=== PATIENT | female | born 1970 | race African-American/Black ===

== ENCOUNTER 2024-03-29 11:41 | Emergency (ER) | payer MEDICAID, SELFPAY ==
[2024-03-29 11:44] VITALS: BP 134/106; PULSE 77; RESP 15; TEMP 35.9; O2SAT 96; BMI 38.7
--- NOTE | 2024-03-29 11:53 | ED.VIS.BACK ---
HPI History of Present Illness Chief Complaint: Back PFSH PFS Home Medications ?Medication ?Instructions ?Recorded ?Last Taken ?Type prednisone 20 mg tablet 20 mg PO DAILY #5 tabs 03/29/24 Unknown Rx Allergy/AdvReac Type Severity Reaction Status Date / Time acetaminophen (From Tylenol) Allergy Mild Hives Verified 03/29/24 11:44 ibuprofen Allergy Mild Hives Verified 03/29/24 11:44 Social History Smoking Status: Never smoker EXAM Physical Exam Const Vital Signs: 03/29/24 11:44 03/29/24 13:18 Temperature 96.7 F L 96.7 F L Temperature Source Temporal Pulse Rate 77 77 Respiratory Rate 15 17 Blood Pressure 134/106 H 134/106 H Blood Pressure Mean 115 115 Pulse Ox 96 97 Oxygen Delivery Method Room Air MDM MDM MDM Narrative Medical decision making narrative: HISTORY OF PRESENT ILLNESS: 53-year-old female presents with back pain. Notes several weeks of right lower back pain. States she has been doing lots of heavy lifting at work. Notes pain radiates down right leg. Notes it does wrap around her side. Denies urinary complaint such as frequency, urgency or pain with urination. Denies hematuria. Patient denies any saddle anesthesia, urinary tension, bowel or bladder incontinence, lower extremity weakness, fever or IV drug use, no recent spinal manipulation or surgery, no recent urinary catheterization. REVIEW OF SYSTEMS: All other systems reviewed and are negative except as noted in the history of present illness. At least 10 review of systems reviewed and are negative except as noted in history of present illness. PHYSICAL EXAM: Nursing triage notes reviewed, Vital signs reviewed Constitutional: please see mdm HENT: MMM Eyes: Pupils equal round and reactive to light, Extraocular muscles intact Neck: No stridor, no JVD, full neck ROM Lungs: Clear to auscultation, No wheezing or rales. No increased work of breathing, no conversational dyspnea, no accessory muscle use, no nasal flaring. No respiratory distress noted Heart: Regular rate and rhythm, No murmurs, No rubs and No gallops, 2+ distal pulses (radial, femoral, posterior tibial) in all extremities Abdomen: Soft, there is no tenderness, rigidity, rebound or guarding, no obvious peritoneal signs, no palpable pulsatile abdominal masses, no auscultated abdominal bruit : No CVAT Extremities: No edema Back: No midline step-offs or deformities Neuro: Intact sensation L1-S1 dermatomal distributions. Intact 5/5 strength in hip flexion (T12-L3). Knee extension (L2-L4). Ankle dorsiflexion (L4-L5). Ankle plantar flexion (S1). Great toe extension (L5). 2+ patellar and Achilles DTRs. Skin: No rash or lesions noted MEDICAL DECISION MAKING: Chief Complaint: Back pain External records reviewed: No recent imaging of the back noted Factors affecting care: None reported Social determinants of health: No IV drug use History obtained from others: none Consults: none [facility] Narrative: The patient was initially hemodynamically stable, afebrile and nontoxic-appearing. Initial exam without focal lower extremity neurologic deficits. I considered the following differential diagnosis: Musculoskeletal back pain, space-occupying lesion of the spinal (epidural abscess, epidural hematoma), cauda equina, conus medullaris, fracture dislocation, AAA, nephrolithiasis, pyelonephritis, aortic dissection The patient presented complaining of back pain. There was no history of recent fall or trauma. There was no evidence to support genitourinary etiology. There is also no evidence to suggest vascular pathology such as AAA dissection. No fevers or other evidence to suspect infectious processes, abscess, osteomyelitis etc. The patient?s neurological exam is normal with normal motor and sensory. There is no saddle paresthesias reported and no bowel or bladder incontinence or retention. I suspect the pain is mechanical in nature. I treated the patient with 1 dose of oral narcotics here, prednisone, lidocaine patches. Clinical suspicion, plan of care and management was discussed with the patient. The patient was instructed to follow up with their health care provider. The patient was also instructed to return if the pain worsened, changed, or developed weakness or bowel or bladder trouble. The patient agreed with plan. I completed a structured, evidence-based clinical evaluation to screen for acute non-traumatic spinal emergencies. The patient has a normal detailed neurologic exam and red flag historical factors were negative. The evidence indicates that the patient is very low risk for an acute spinal emergency and this is consistent with my clinical intuition. The risk of further workup is higher than the likelihood of the patient having a spinal epidural abscess or other dangerous emergency spinal condition. It is, therefore, in the patient?s best interest not to do additional emergent testing at this time. Shared Decision-Making I have discussed with the patient my clinical impression and the result of an evidence-based clinical evaluation to screen for spinal epidural abscess and other spinal emergencies, as well as the risk of further testing and hospitalization. The evidence shows that the risk for an acute spinal emergency is less than 1%. Although the risk of an acute spinal emergency has not been completely eliminated, the risks of further testing likely exceed any potential benefit, and the patient agrees with not pursuing further emergent evaluation for causes of back pain at this time. The patient and/or family, caregivers express understanding. The patient and/or family, caregivers agrees with the plan. Total critical care time today provided was at least 0 minutes. This excludes separately billable procedures. Critical care time (if documented) is secondary to the patient having high probability of clinically significant/life threatening deterioration in the patient's condition which required my urgent intervention. Impression: 1. Acute back pain 2. Sciatica Ganesh Jason Dewitt DO Discharge Plan Triage Chief Complaint: Back ED Provider: Ganesh Dewitt Dx/Rx/DC Orders Instructions: ED Back Pain (Acute or Chronic), ED Sciatica Prescriptions: New prednisone 20 mg tablet 20 mg PO DAILY Qty: 5 0RF Primary Care Provider: Amaris Louie Referrals: Amaris Louie ASSISTANT LABORATORY DIRECTOR-C [Primary Care Provider] - Activity Restrictions/Additional Instructions: Thank you for trusting us with your care today! Your clinical presentation is consistent with sciatica. Please take Tylenol (2 pills, 650 mg), ibuprofen (2 pills, 400 mg) every 6 hours as needed for pain and fever control. Please take prednisone as prescribed. Please return to the emergency department if your symptoms change or worsen. Specifically develop bowel or bladder incontinence, urinary retention, decreased sensation around your private area, loss of movement or sensation in your legs. Please follow with your primary care physician for further outpatient evaluation and management. Print Language: Ukrainian Disposition Disposition: Home, Self Care Discharge Date/Time: 03/29/24 13:18
[2024-03-29] MEDS: oxyCODONE 5 MG Tablet PO (12:38)
[2024-03-29] MEDS: Lidocaine 5% Patch 1 PATCH TOPICAL (12:38)
[2024-03-29] MEDS: predniSONE 20 MG Tablet PO (12:38)
[2024-03-29 13:18] VITALS: BP 134/106; PULSE 77; RESP 17; TEMP 35.9; O2SAT 97
== END 2024-03-29 13:18 | disposition home or self-care (01) ==
PROVIDERS: Emergency Provider Emergency Medicine; PCP Nurse Practitioner Family; Visit Provider Emergency Medicine
DX: M54.31 Sciatica, right side (principal); X50.0XXA Overexertion from strenuous movement or load, initial encounter; Y93.89 Activity, other specified; Y92.89 Other specified places as the place of occurrence of the external cause
CPT/HCPCS: 99282

== ENCOUNTER 2025-03-16 09:37 | Inpatient (IN) | payer SELFPAY ==
[2025-03-16] VITALS (14 sets, daily range): BP systolic 112–150; BP diastolic 65–80; PULSE 85–112; RESP 14–20; TEMP 36–37.3; O2SAT 92–99; BMI 41.9
--- NOTE | 2025-03-16 09:47 | CT_ITS ---
PROCEDURE: ABDOMEN/PELVIS W IV CONT ONLY 03/16/2025 REASON FOR EXAM: ABDOMINAL PAIN TECHNIQUE: Procedure Code: [id number] Modality: CT Procedure: ABDOMEN/PELVIS W IV CONT ONLY Coronal and Sagittal reconstruction series were provided. CONTRAST: Isovue 370 VOLUME: 75 mL One or more dose reduction techniques were used (e.g., Automated exposure control, adjustment of the mA and/or kV according to patient size, use of iterative reconstruction technique. RADIATION DOSE SUMMARY: CTDlvol: 22.55 mGy DLP: 1170.51 mGycm COMPARISON: None. FINDINGS: Lung bases: Clear. Liver: Unremarkable. Gallbladder: Distended but otherwise unremarkable. No biliary dilation. Spleen: Unremarkable. Pancreas: Unremarkable. Adrenals: Unremarkable. Kidneys: Unremarkable. No hydronephrosis. No nephrolithiasis. Bladder: Unremarkable. Reproductive Organs: Unremarkable. Bowel: No bowel wall thickening. No bowel obstruction. Appendix: The appendix is dilated measures 1.5 cm in diameter with wall enhancement. Previously fat stranding. Multiple appendicoliths. Nearby collection contains air and fluid measures 2 x 6 x 4 cm. Lymph nodes: No lymphadenopathy. Vasculature: No aneurysm. Peritoneum / Retroperitoneum: No remote free air or free fluid. Bones: No acute bony abnormalities. CT/Abdomen/Pelvis W IV Cont ONLY IMPRESSION: Perforated acute appendicitis with up to 4 cm abscess as detailed. Findings were discussed with Dr. Garrison on 03/16/2025 10:32 a.m.. Reading Location: [facility]
--- NOTE | 2025-03-16 09:49 | ED.VIS.GI ---
HPI HPI - GI History of Present Illness Chief Complaint: Abd Pain Detail of Chief Complaint: Abdominal pain Informant: patient Narrative Narrative: Patient presents with abdominal pain that started 4 days ago. She did develop vomiting. Vomiting is since stopped and she did not throw up yesterday or today. Continues with the abdominal pain. Today she had 2 bouts of watery stool. She spoke with her son whom she saw around [facility] and he had similar type illness for over a week. Patient denies fever. She has had no prior abdominal surgeries other than hysterectomy. She rates her pain a 10 out of 10 and is generalized and diffuse and continuous. She has had decreased p.o. intake. She denies urinary symptoms such as dysuria urgency or frequency. PFSH PFS Home Medications ?Medication ?Instructions ?Recorded ?Last Taken ?Type prednisone 20 mg tablet 20 mg PO DAILY #5 tabs 03/29/24 Unknown Rx Allergy/AdvReac Type Severity Reaction Status Date / Time acetaminophen (From Tylenol) Allergy Mild Hives Verified 03/16/25 09:39 ibuprofen Allergy Mild Hives Verified 03/16/25 09:39 Surgical History (Updated 03/16/25 @ 09:47 by Pranav Collier) H/O: hysterectomy Social History Smoking Status: Never smoker ROS ROS ED Review of Systems ROS Unobtainable: other Constitutional Constitutional ED: Reports lethargy; Denies chills, fever(s), sweats or weight loss Eyes Eyes: Denies blurry vision, change in vision or diplopia ENT ENT ED: Denies rhinorrhea or sore throat Cardiovascular Cardiovascular: Denies chest pain, orthopnea or racing heartbeat Respiratory/Chest Respiratory/Chest: Denies cough, dyspnea, dyspnea on exertion, orthopnea or sputum Gastrointestinal Gastrointestinal: Reports abdominal pain, diarrhea, nausea and vomiting Genitourinary Genitourinary ED: Denies dysuria, hematuria or urinary frequency Musculoskeletal Musculoskeletal: Denies arthralgias, back pain, myalgias or neck pain Integumentary Denies abscess, Abrasions or rash Neurologic Neurologic: Denies headache(s) or weakness Psychiatric Psychiatric: Denies anxiety, depression or suicidal thoughts Endocrine Endocrinology: Denies polydipsia, polyphagia or polyuria Hematologic/Lymphatic Hematologic/Lymphatic: Denies easy bleeding, easy bruising or lymphadenopathy Allergic/Immunologic Allergic/Immunologic ED: Denies mouth swelling, tongue swelling or urticaria EXAM Physical Exam Const Vital Signs: 03/16/25 09:38 Temperature 96.8 F L Temperature Source Temporal Pulse Rate 112 H Respiratory Rate 20 H Blood Pressure 113/80 Blood Pressure Mean 91 Pulse Ox 99 Oxygen Delivery Method Room Air Positive well nourished and well developed General Appearance ED: well developed and NAD HEENT Reports TM's clear and moist mucous membranes normocephalic and atraumatic; Negative for trauma or tenderness Tympanic Membrane ED: Yes TM's clear Eyes PERRL and EOMs intact bilaterally General Eye ED: Negative for pale conjunctiva or scleral icterus Neck no lymphadenopathy, supple and no JVD General: Negative for tenderness Chest Wall inspection of chest normal and palpation of chest normal Chest: Negative for tenderness Resp normal respiratory effort and clear to auscultation bilaterally Effort and Inspection: Negative for respiratory distress or pain with movement Auscultation: Negative for rhonchi, wheezes or diminished lung sounds Cardio regular rate, regular rhythm, S1 normal heart sound, S2 normal heart sound and no murmurs Peripheral Pulses: pulses 2+ throughout GI normal to inspection, nondistended, normoactive bowel sounds, soft to palpation, non-distended and no masses GI Narrative: Mild diffuse tenderness. There is no rebound, rigidity, or peritoneal signs Back/Spine no CVA tenderness and no thoracic nor lumbar tenderness Extremity normal to inspection General Extremety ED: Negative for edema General Extremity: Negative for edema Neuro oriented x3, CN's II-XII intact bilaterally, no sensory deficits noted and gait normal Sensorium / Orientation: awake, alert, oriented to person, oriented to place and oriented to time Motor Exam: strength 5/5 throughout and strength abnormal Psych mental status grossly normal Skin no rashes or lesions noted and no wounds MDM MDM MDM Narrative Medical decision making narrative: Patient presents with vomiting and abdominal pain and now diarrhea started. Clinically looks well. IV line established. CBC with differential obtained showed an elevated white count of 15.7 with hemoglobin 12.5 and platelet count of 185. Chemistries showed a depressed potassium at 3.0 with chloride 101. BUN 17 and creat 1.64. LFTs unremarkable. Lipase was normal at 20. I ordered a CT scan of the abdomen pelvis which was read by radiology as acute perforated appendicitis with abscess. Discussed case with general surgeon on-call Dr. Valencia who will see patient in the emergency department. I did start patient on Zosyn IV. Urinalysis also ordered and pending. Lab Data Attestation: I reviewed the patient's lab results. Labs: Laboratory Results - last 24 hr 03/16/25 09:57 WBC 15.7 H RBC 3.85 L Hgb 12.5 Hct 35.9 L MCV 93.2 MCH 32.5 H MCHC 34.8 RDW Std Deviation 42.6 RDW Coeff of Adria 12.4 Plt Count 185 MPV 9.8 Immature Gran % (Auto) 0.500 Neut % (Auto) 86.3 H Lymph % (Auto) 6.0 L Ralls % (Auto) 6.1 Eos % (Auto) 0.8 Baso % (Auto) 0.3 Absolute Neuts (auto) 13.6 H Absolute Lymphs (auto) 0.94 Nucleated RBC % 0 Sodium 137 Potassium 3.0 L Chloride 101 Carbon Dioxide 20.8 L Anion Gap 15 BUN 17 Creatinine 1.64 H Estim Creat Clear Calc 51.20 Est GFR (MDRD) Non-Af 37 L BUN/Creatinine Ratio 10.6 Glucose 134 H Lactic Acid 1.2 Calcium 9.5 Total Bilirubin 1.05 AST 21 ALT 18 Alkaline Phosphatase 98 Total Protein 7.2 Albumin 3.6 Globulin 3.6 Albumin/Globulin Ratio 1.0 Lipase 20 Radiography Diagnostic Testing: Clinical Impression(s) from Imaging Studies Abdomen/Pelvis CT 03/16/25 09:47 IMPRESSION: Perforated acute appendicitis with up to 4 cm abscess as detailed. Findings were discussed with Dr. Garrison on 03/16/2025 10:32 a.m.. Reading Location: [id number] Discharge Plan Dx/Rx/DC Orders Clinical Impression: Acute perforated appendicitis Disposition Disposition: [facility]
[2025-03-16] MEDS: 0.9% Normal Saline (1000mL) 1,000 ML 999 ML IV (09:58)
[2025-03-16 10:15] LABS: Hematocrit 35.9 % (37-47); Hemoglobin 12.5 g/dL (12.0-15.0); Immature Granulocytes Count 0.080 X10^3/uL (0.0-0.0); Mean Corp Hgb Conc 34.8 g/dL (32-36); Mean Corpuscular Volume 93.2 fL (81-99); Mean Platelet Vol. 9.8 fl (6.2-12.0); NRBC Flagged by Analyzer 0 % (0-5); Platelet Count 185 K/mm3 (150-450); RBC Distribution Width CV 12.4 % (11.6-14.6); RBC Distribution Width SD 42.6 fl (35.1-43.9); Red Blood Count 3.85 M/mm3 (4.2-5.4); White Blood Count 15.7 K/mm3 (4.4-11.0)
[2025-03-16 10:42] LABS: AST(SGOT) 21 U/L (<=31); Alanine Aminotransfer ALT/SGPT 18 U/L (<=34); Albumin, Serum 3.6 g/dL (3.5-5.0); Alkaline Phosphatase 98 U/L (35-104); Anion Gap 15 (5-15); BUN 17 mg/dL (4-19); BUN/Creat Ratio 10.6 RATIO (10-20); Calcium,Total 9.5 mg/dL (7.6-11.0); Carbon Dioxide 20.8 mmol/L (21.0-32.0); Chloride 101 mmol/L (98-108); Estimated Creatinine Clearance 51.20 ml/min (50-250); Globulin 3.6 g/dL (2.2-4.2); Glucose 134 mg/dL (70-99); Lipase 20 U/L (13-75); Potassium 3.0 mmol/L (3.3-5.1)
--- NOTE | 2025-03-16 10:53 | PCM.HP.STD ---
HPI - General HPI Narrative FANTASMA HUANG, is a 54 F who presents with abdominal pain. Patient reports that this started on Friday. She did have nausea and vomiting. She also says that she had chills but no fever. She defines the pain is in the right lower quadrant without any radiation. PFSH Home Medications ?Medication ?Instructions ?Recorded ?Last Taken ?Type prednisone 20 mg tablet 20 mg PO DAILY #5 tabs 03/29/24 Unknown Rx Allergy/AdvReac Type Severity Reaction Status Date / Time acetaminophen (From Tylenol) Allergy Mild Hives Verified 03/16/25 09:39 ibuprofen Allergy Mild Hives Verified 03/16/25 09:39 Surgical History (Updated 03/16/25 @ 09:47 by Pranav Collier) H/O: hysterectomy Social History Smoking Status: Never smoker Vital Signs Vital Signs Vital Signs: 03/16/25 09:38 Temperature 96.8 F L Temperature Source Temporal Pulse Rate 112 H Respiratory Rate 20 H Blood Pressure 113/80 Blood Pressure Mean 91 Pulse Ox 99 Oxygen Delivery Method Room Air Weight Weight: 259 lb 11.272 oz Body Mass Index (BMI) 41.9 Physical Exam Const oriented x3 and no apparent distress Resp normal respiratory effort GI soft to palpation Palpation: tender Positive for RLQ Extremity normal to inspection Results Lab / Micro Data 03/16/25 09:57 03/16/25 09:57 Labs: Laboratory Results - last 24 hr 03/16/25 09:57: WBC 15.7 H, RBC 3.85 L, Hgb 12.5, Hct 35.9 L, MCV 93.2, MCH 32.5 H, MCHC 34.8, RDW Std Deviation 42.6, RDW Coeff of Adria 12.4, Plt Count 185, MPV 9.8, Immature Gran % (Auto) 0.500, Neut % (Auto) 86.3 H, Lymph % (Auto) 6.0 L, [place] % (Auto) 6.1, Eos % (Auto) 0.8, Baso % (Auto) 0.3, Absolute Neuts (auto) 13.6 H, Absolute Lymphs (auto) 0.94, Nucleated RBC % 0, Sodium 137, Potassium 3.0 L, Chloride 101, Carbon Dioxide 20.8 L, Anion Gap 15, BUN 17, Creatinine 1.64 H, Estim Creat Clear Calc 51.20, Est GFR (MDRD) Non-Af 37 L, BUN/Creatinine Ratio 10.6, Glucose 134 H, Lactic Acid 1.2, Calcium 9.5, Total Bilirubin 1.05, AST 21, ALT 18, Alkaline Phosphatase 98, Total Protein 7.2, Albumin 3.6, Globulin 3.6, Albumin/Globulin Ratio 1.0, Lipase 20 Imaging Radiology Impression Abdomen/Pelvis CT 03/16/25 09:47 IMPRESSION: Perforated acute appendicitis with up to 4 cm abscess as detailed. Findings were discussed with Dr. Garrison on 03/16/2025 10:32 a.m.. Reading Location: [facility] OF [facility] Assessment & Plan Assessment/Plan (1) Acute perforated appendicitis: PLAN: I reviewed the patient's imaging and the patient's imaging show acute appendicitis with perforation and a small abscess. I discussed laparoscopic appendectomy with the patient in detail and likely leaving a drain. I discussed the possibility of ileocecectomy. I discussed laparoscopic appendectomy in detail as well as the risks including but not limited to bleeding, infection, injury other organ such as the bowel, bladder, ureter. Patient understands all the risks and is willing to proceed. She was given a dose of antibiotics in the emergency room and will be taken down for surgery. Fantasma Teran MD Pager: [facility] [address] [place] [address], [address] [place] [address] Office:
[2025-03-16] MEDS: Piperacil/Tazobactam 4.5 GM in 0.9% Normal Saline (100mL MB+) 100 ML IV (10:55)
--- NOTE | 2025-03-16 11:22 | PCM.PRE.AN2 ---
ASA Classification* ASA Classification ASA Classification: 3 and E Assessment & Plan Anesthesia* Anesthesia Assessment Anesthesia Assessment: Discussed sedation and/or anesthesia options, risks, benefits, and alternatives with patient/parents/legal guardian/POA. Questions invited. The patient/parents/legal guardian/POA seems to understand and agrees to proceed with anesthesia plan. Reviewed the physical assessment, medical history, allergy history and patient home medications list prior to surgery/procedure/anesthetic and documented any changes. Performed airway and anesthesia risk assessments. Anesthesia Type Anesthesia Type: General Anesthesia Focused Assessment* Temperature: 96.8 F Pulse Rate: 112 Blood Pressure: 113/80 Respiratory Rate: 20 Pulse Ox: 99 Airway Assessment Mouth opens: >3 cm Mallampati Score: II Labs Anesthesia Preop lab: CBC WBC, (4.4-11.0) 15.7 K/mm3 H Today, 09:57 RBC, (4.2-5.4) 3.85 M/mm3 L Today, 09:57 Hgb, (12.0-15.0) 12.5 g/dL Today, 09:57 Hct, (37-47) 35.9 % L Today, 09:57 Plt Count, (150-450) 185 K/mm3 Today, 09:57 CHEMISTRY Potassium, (3.3-5.1) 3.0 mmol/L L Today, 09:57 Sodium, (133-145) 137 mmol/L Today, 09:57 BUN, (4-19) 17 mg/dL Today, 09:57 Creatinine, (0.70-1.20) 1.64 mg/dL H Today, 09:57 Glucose, (70-99) 134 mg/dL H Today, 09:57 COAG Pre-Assessment Diagnosis/Proposed Procedure Planned Operative Procedure(s): Laparoscopic appendectomy Anesthesia History 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 When Was Last Pacemaker Check QUESTION #4 FULL TEXT: You/Your Family Experience fever (hyperthermia) with Anesthesia Last Oral Intake Last Oral intake: Last Oral Intake NPO since Meds taken in AM with sips of water? Meds patient instructed to take am of surgery PONV PONV - ultimate hoops scoreboard operator: PONV - ultimate hoops scoreboard operator Female HX of Motion Sickness HX of N/V After Surgery Non-Smoker Duration of Surgery greater than 60 minutes Number of Risk Factors PONV Score Height & Weight Height & Weight: Anesthesia: Height & Weight Height 5 ft 6 in 03/16/25 09:38 Weight: 117.8 kg 03/16/25 09:47 Body Mass Index (BMI) 41.9 03/16/25 09:47 Respiratory Assessment Respiratory Assessment - ultimate hoops scoreboard operator: Respiratory Tract Infection Hx - ultimate hoops scoreboard operator Hx Respiratory Tract Infection STOP Sleep Apnea STOP Sleep Apnea - ultimate hoops scoreboard operator: STOP Sleep Apnea - ultimate hoops scoreboard operator Hx Hypertension Hx Sleep Apnea CPAP BIPAP Do you snore loudly (louder than talking or can be heard Do you often feel tired/ fatigued/ sleepy during daytime? Has anyone observed you stop breathing during sleep? STOP Results QUESTION #5 FULL TEXT : Do you snore loudly (louder than talking or can be heard through closed doors)? 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 Specify any problems Hx of Preganancy in last 3 Months Nurse Filling Out Transfusion & Questions: Date: Time: Patient unable to answer at this time (ie. confused, unrespo /Reproduction History /Reproductive History - ultimate hoops scoreboard operator: /Reproductive Hx- ultimate hoops scoreboard operator Hx Now Gestational Age (in weeks): EDC: Hx Hx Para Hx Section SAB Does the father of the baby or his family experience fever w Father of the baby Malignant Hypertension history comment Active Medications Active Medications: Current Medications Generic Name Dose Route Start Last Admin Trade Name Freq PRN Reason Stop Dose Admin Potassium Chloride 10 meq in 100 mls @ 100 mls/hr 03/16/25 11:30 IV BOLUS 03/16/25 13:29 Q1H MARCELO PFSH Home Medications ?Medication ?Instructions ?Recorded ?Last Taken ?Type prednisone 20 mg tablet 20 mg PO DAILY #5 tabs 03/29/24 Unknown Rx Allergy/AdvReac Type Severity Reaction Status Date / Time acetaminophen (From Tylenol) Allergy Mild Hives Verified 03/16/25 09:39 ibuprofen Allergy Mild Hives Verified 03/16/25 09:39 Surgical History H/O: hysterectomy Social History Smoking Status: Never smoker Review of Systems (Anesthesia) ROS Narrative System reviewed and no additional complaints, except as documented.
[2025-03-16] MEDS: Potassium Chloride 10mEq/100mL 10 MEQ/100 ML IV.SOLN. 100 MEQ IV BOLUS ×2 (11:52→13:01)
[2025-03-16] MEDS: 0.9% Normal Saline (1000mL) 1,000 ML 15 ML IV (11:58)
[2025-03-16] MEDS: Bupiv/Epi 0.25% 30 ML Vial (13:18)
[2025-03-16] MEDS: Lidocaine 1% (5 ml sdv) 5 ML Vial 10 ML IV (14:37)
--- NOTE | 2025-03-16 15:05 | APP_PTH ---
PATIENT: FANTASMA HUANG LOC: MS3 U#:[id number] AGE/SX: 54/F ROOM: MS319 RE03/16/[address]: Dr. Fantasma Teran MD : 1970 BED: 1 DIS: 03/19/2025 SPEC #: [id number] RECD: 03/16/25 16:10 STATUS: NOEMI LUNA #: [id number] FATIMAH: 03/16/25 15:[address]: Fantasma Teran DEPT: SURGICAL PATHOLOGY RECD BY: Navneet White ENTERED: 03/17/25 09:42 SP TYPE: APPENDIX OTHR DR: DAQUAN Carranza Tissues: A - Appendix, NOS Procedures: Surgery Specimen Level III HEADER OPERATION: Laparoscopic appendectomy PRE-OP DIAGNOSIS: Acute perforated appendicitis TISSUE SUBMITTED: A- Appendix MICROSCOPIC DIAGNOSIS A. Cecal appendix, appendectomy: - Gangrenous appendicitis with perforation MICROSCOPIC DESCRIPTION Slides are reviewed. GROSS DESCRIPTION A. Received in formalin labeled with the patient's name and date of . Designated as appendix is a pink-red and granular cecal appendix and 2 pieces, collectively measuring 9.4 x 0.7 cm. There is patchy exudate on the serosal surface and attached, shaggy and congested mesoappendix. The margin is inked black and shaved. Sectioning reveals green-guillen diffusely necrotic mucosa with a fibrous distal tip and a 0.3 cm area of fibrosis spanning from the mucosa to the underlying mesoappendix (suspicious for healed perforation) located 0.8 cm from the distal tip. It Systems Manager sections are submitted in 2 cassettes as follows: A1: Margin, cross-sectionsA2: Distal tip, trisected WI 03/17/2025 CPT:26706
[2025-03-16] MEDS: fentaNYL 100 MCG/2 ML Ampul 200 MCG IV (15:16)
--- NOTE | 2025-03-16 15:33 | PCM.OPRPT ---
Operative Report (Standard) Operative Information Date of Procedure: 03/16/25 Pre-Operative Diagnosis: Perforated appendicitis Post-Operative Diagnosis: Perforated appendicitis Surgery/Procedure Performed: Laparoscopic appendectomy security systems administrator: Yes Life Underwriter: Shannan Gudino Tasks completed by list of first job ideas: Opening & closing and Retracting Type of Anesthesia: General/Regional RN Documented Start/Stop Times: Operation Date: 03/16/25 15:05 Case Time Into Pre-Op 03/16/25 11:09 Anesthesia Start 03/16/25 14:30 Into Room 03/16/25 14:30 Out of Pre-Op 03/16/25 14:30 Procedure Start 03/16/25 14:50 Procedure Start Time: 14:50 Procedure Stop Time: 15:40 Select all DRAINS/GRAFTS/IMPLANTS that apply: Drains Drain details: RICKEY to bulb suction Estimated Blood Loss: 20 Specimen collected: Yes Description of specimen(s) removed: Appendix Description of surgery: Patient was brought to the op room and general anesthesia was induced. The abdomen was prepped and draped in usual sterile fashion. A midline incision was made superior to the umbilicus and using Visiport technique the abdomen was entered. The abdomen was insufflated to 15 mmHg. The camera was inserted and the patient was placed in steep Trendelenburg position. Under direct visualization a suprapubic 5 mm port was placed and a left lower quadrant 5 mm port was placed. The midline incision port was upsized to a 12 mm port. The right lower quadrant was explored. The appendix was densely adherent to the other bowel. After dissecting it free there was an abscess cavity that was suctioned. There was feculent material in the abscess. This was all suctioned dry. The appendix was identified and it was perforated in the midsection. The distal appendix was placed into a bag. The proximal appendix was dissected free and the blood vessels were taken down using Enseal. A stapler was placed across the proximal appendix and it was divided from the cecum. It was placed into a separate bag along with a stool that was in the abscess. The staple line was inspected and there was some bleeding so titanium clip silica spray mixer was used to clip over the staple line to stop the bleeding. There was good hemostasis and the cavity was irrigated and suctioned dry. A 15 [place] Islander round drain was placed through the left lower quadrant incision and placed into the abscess cavity. It was sutured to the skin using 4-0 nylon suture. Next the camera was moved to the suprapubic port and the supraumbilical port was desufflated and removed and the bags were removed including the pieces of the appendix. Next the midline fascia was closed with a 0 Vicryl suture using the Mark Peralta needle. Next the abdomen was allowed to desufflate from the abdomen and the port was removed. The incisions were injected with local anesthetic and closed with interrupted 4-0 Monocryl sutures. Steri-Strips and bandages were applied. Drain was placed to bulb suction. Patient was awoken and taken to PACU in stable condition. Surgical Findings: Perforated appendicitis with feculent abscess Complications Complications: No Admit VTE Documentation VTE Mechan Device Prophylaxis: SCD's
--- NOTE | 2025-03-16 15:48 | PCM.POST.ANE ---
Anesthesia: Postop Eval I Current Vital Signs Temperature: 99.2 F Pulse Rate: 104 Blood Pressure: 150/74 Respiratory Rate: 16 Pulse Ox: 95 Oxygen Delivery Method: Room Air Assessment Airway patent: Yes Spontaneous unlabored respirations: Yes Mental status: Awake and Calm nausea: No Vomiting: No Anesthesia Complication: No Fluid Hydration Crystalloid volume administer (ml): 1,200 Total IV fluid infused: 1,200 Progress Note Anesthesia document: Postop Eval 1 completed: Yes
[2025-03-16] MEDS: 0.9% Saline Lock 10 ML Syringe IV (19:20)
[2025-03-16] MEDS: 0.9% Normal Saline (1000mL) 1,000 ML 125 ML IV (19:25)
[2025-03-16] MEDS: Piperacil/Tazobactam 3.375 GM in 0.9% Normal Saline (50mL MB+) 50 ML IV (21:39)
[2025-03-17 04:33] VITALS: BP 114/90; PULSE 63; RESP 18; TEMP 36.4; O2SAT 100
[2025-03-17] MEDS: Piperacil/Tazobactam 3.375 GM in 0.9% Normal Saline (50mL MB+) 50 ML IV ×3 (04:37→21:15)
[2025-03-17] MEDS: 0.9% Normal Saline (1000mL) 1,000 ML 125 ML IV ×3 (04:37→21:08)
[2025-03-17 06:35] LABS: Hematocrit 31.6 % (37-47); Hemoglobin 10.6 g/dL (12.0-15.0); Immature Granulocytes Count 0.080 X10^3/uL (0.0-0.0); Mean Corp Hgb Conc 33.5 g/dL (32-36); Mean Corpuscular Volume 94.6 fL (81-99); Mean Platelet Vol. 10.1 fl (6.2-12.0); NRBC Flagged by Analyzer 0 % (0-5); POSITIVE DIFFERENTIAL YES; POSITIVE MORPHOLOGY YES; Platelet Count 187 K/mm3 (150-450); RBC Distribution Width CV 12.8 % (11.6-14.6); RBC Distribution Width SD 44.6 fl (35.1-43.9); Red Blood Count 3.34 M/mm3 (4.2-5.4); White Blood Count 12.1 K/mm3 (4.4-11.0)
[2025-03-17 07:01] LABS: Differential Indicated SCAN CRITERIA MET
[2025-03-17 07:09] LABS: Anion Gap 11 (5-15); BUN 13 mg/dL (4-19); BUN/Creat Ratio 13.8 RATIO (10-20); Calcium,Total 8.3 mg/dL (7.6-11.0); Carbon Dioxide 20.1 mmol/L (21.0-32.0); Chloride 106 mmol/L (98-108); Estimated Creatinine Clearance 90.28 ml/min (50-250); Glucose 193 mg/dL (70-99); Potassium 3.3 mmol/L (3.3-5.1)
--- NOTE | 2025-03-17 07:57 | PCM.PN.SRG ---
Subjective Subjective Patient is comfortable and in less pain than she was before surgery. She is not passing any gas or having any nausea. Objective Data Objective Data Vital Signs: Vital Signs Temp Pulse Resp BP Pulse Ox O2 Del Method O2 Flow Rate 97.5 F L 63 18 114/90 H 100 Room Air 2 03/17/25 04:33 03/17/25 04:33 03/17/25 04:33 03/17/25 04:33 03/17/25 04:33 03/17/25 04:33 03/16/25 17:32 Oxygen Flow Rate (L/min) 2 Oxygen Delivery Method Room Air Weight: 259 lb 11.272 oz Body Mass Index (BMI) 41.9 Intake & Output: Intake and Output for Last 24 Hours 03/15/25 03/16/25 03/17/25 23:59 23:59 23:59 Intake Total 3600 / 3600 1050 / 1050 Output Total 185 / 185 50 / 50 Balance 3415 / 3415 1000 / 1000 Lab / Micro Data 03/17/25 06:22 03/17/25 06:22 Labs: Laboratory Results - last 24 hr 03/16/25 09:57: WBC 15.7 H, RBC 3.85 L, Hgb 12.5, Hct 35.9 L, MCV 93.2, MCH 32.5 H, MCHC 34.8, RDW Std Deviation 42.6, RDW Coeff of Adria 12.4, Plt Count 185, MPV 9.8, Immature Gran % (Auto) 0.500, Neut % (Auto) 86.3 H, Lymph % (Auto) 6.0 L, [place] % (Auto) 6.1, Eos % (Auto) 0.8, Baso % (Auto) 0.3, Absolute Neuts (auto) 13.6 H, Absolute Lymphs (auto) 0.94, Nucleated RBC % 0, Sodium 137, Potassium 3.0 L, Chloride 101, Carbon Dioxide 20.8 L, Anion Gap 15, BUN 17, Creatinine 1.64 H, Estim Creat Clear Calc 51.20, Est GFR (MDRD) Non-Af 37 L, BUN/Creatinine Ratio 10.6, Glucose 134 H, Lactic Acid 1.2, Calcium 9.5, Total Bilirubin 1.05, AST 21, ALT 18, Alkaline Phosphatase 98, Total Protein 7.2, Albumin 3.6, Globulin 3.6, Albumin/Globulin Ratio 1.0, Lipase 20 03/17/25 06:22: WBC 12.1 H, RBC 3.34 L, Hgb 10.6 L, Hct 31.6 L, MCV 94.6, MCH 31.7, MCHC 33.5, RDW Std Deviation 44.6 H, RDW Coeff of Adria 12.8, Plt Count 187, MPV 10.1, Immature Gran % (Auto) 0.700, Neut % (Auto) 90.9 H, Lymph % (Auto) 4.6 L, [place] % (Auto) 3.7, Eos % (Auto) 0.0, Baso % (Auto) 0.1, Absolute Neuts (auto) 11.0 H, Absolute Lymphs (auto) 0.56 L, Nucleated RBC % 0, Sodium 138, Potassium 3.3, Chloride 106, Carbon Dioxide 20.1 L, Anion Gap 11, BUN 13, Creatinine 0.93, Estim Creat Clear Calc 90.28, Est GFR (MDRD) Non-Af 73, BUN/Creatinine Ratio 13.8, Glucose 193 H, Calcium 8.3 Radiography Diagnostic Testing: Radiology Impression Abdomen/Pelvis CT 03/16/25 09:47 IMPRESSION: Perforated acute appendicitis with up to 4 cm abscess as detailed. Findings were discussed with Dr. Garrison on 03/16/2025 10:32 a.m.. Reading [facility] Physical Exam Const oriented x3 and no apparent distress Resp normal respiratory effort GI soft to palpation Palpation: tender Extremity normal to inspection Assessment & Plan Assessment/Plan (1) Acute perforated appendicitis: PLAN: The patient had perforated appendicitis and is still having purulence in the drain. Continue antibiotics. Continue n.p.o. until she passes gas. Encouraged ambulation and incentive spirometer. Fantasma Teran MD Pager: [facility] [address] [place] [address], [address] [place] [address] Office:
[2025-03-17 09:00] VITALS: BP 104/77; PULSE 64; RESP 18; TEMP 36.8; O2SAT 100
[2025-03-17] MEDS: FLU VACCINE 2025-26(6MOS UP) 45 MCG/0.5 ML SYRINGE IM (09:14)
--- NOTE | 2025-03-17 11:15 | CASEMGMT ---
Dx:acute perforated appendicitis, abd pain LACE:1 6-Clicks:24 Medical record reviewed and patient evaluated for identification of discharge planning needs. Based on this review, at this time criteria are not present to indicate a need for discharge planning. Will remain available to assist with discharge planning needs as identified or requested. Pt has drain, follow for drain care if present upon dc.
[2025-03-17 14:35] VITALS: BP 115/75; PULSE 73; RESP 18; TEMP 36.9; O2SAT 100
--- NOTE | 2025-03-17 15:41 | CASEMGMT ---
Social Work- SW met with pt to discuss self-pay status. SW introduced self and role; pt agreeable to meet. Stefania, [employer], met with pt earlier. Pt is over-income for CHARLINE, but qualifies for HCAP. Pt has been out of work and may qualify for CHARLINE for March, therefore, Stefania will follow up at discharge. Pt reports to SW that she works at [employer] and is concerned about rent next month. SW provided information for [employer], [employer], prescription information, [employer], gas resources. Pt reports no other needs at this time. Pt was working on gathering pay stubs for HCAP. JANIS Sharma
--- NOTE | 2025-03-17 16:19 | POSTOPAN2_ITS ---
Anesthesia Postop Eval I Sum Postop Eval Completion status Anesthesia document: Postop Eval 1 completed: Yes Anesthesia Postop Eval I Summary Anesthesia Postop Eval I Summary: Anesthesia Postop Eval I: Assessment Summary Airway patent Yes 03/16/25 15:48 [email or web address] [email or web address] Spontaneous unlabored Yes 03/16/25 15:48 [email or web address] [email or web address] respirations Mental status Awake,Calm 03/16/25 15:48 [email or web address] [email or web address] nausea No 03/16/25 15:48 [email or web address] [email or web address] Vomiting No 03/16/25 15:48 [email or web address] Anesthesia Postop Eval I: Fluid Summary Crystalloid volume administer 1,200 03/16/25 15:48 [email or web address] (ml) Colloids volume administered ( ml) Blood Product volume administered (ml) Total IV fluid infused 1,200 03/16/25 15:48 [email or web address] Anesthesia Postop Eval I: Summary Notes Anesthesia Complication No 03/16/25 15:48 [email or web address] Anesthesia Complication Comment: Post-operative progress note Anesthesia: Postop Eval II Evaluation Mental status: Awake and Calm Pain Level: 0 nausea: No Vomiting: No Complications Anesthesia Complication: No
--- NOTE | 2025-03-17 16:19 | PCM.POSTANE2 ---
Anesthesia Postop Eval I Sum Postop Eval Completion status Anesthesia document: Postop Eval 1 completed: Yes Anesthesia Postop Eval I Summary Anesthesia Postop Eval I Summary: Anesthesia Postop Eval I: Assessment Summary Airway patent Yes 03/16/25 15:48 BEATING MACHINE [email or web address] Spontaneous unlabored Yes 03/16/25 15:48 BEATING MACHINE OPERATOR.[email or web address] respirations Mental status Awake,Calm 03/16/25 15:48 BEATING MACHINE OPERATOR.[email or web address] nausea No 03/16/25 15:48 BEATING MACHINE OPERATOR.[email or web address] Vomiting No 03/16/25 15:48 BEATING MACHINE [email or web address].[email or web address] Anesthesia Postop Eval I: Fluid Summary Crystalloid volume administer 1,200 03/16/25 15:48 BEATING MACHINE [email or web address].[email or web address] (ml) Colloids volume administered ( ml) Blood Product volume administered (ml) Total IV fluid infused 1,200 03/16/25 15:48 BEATING MACHINE OPERATOR.[email or web address] Anesthesia Postop Eval I: Summary Notes Anesthesia Complication No 03/16/25 15:48 BEATING MACHINE [email or web address].[email or web address] Anesthesia Complication Comment: Post-operative progress note Anesthesia: Postop Eval II Evaluation Mental status: Awake and Calm Pain Level: 0 nausea: No Vomiting: No Complications Anesthesia Complication: No
[2025-03-17] MEDS: 0.9% Saline Lock 10 ML Syringe IV (16:26)
[2025-03-17 21:00] VITALS: BP 125/73; PULSE 63; RESP 16; TEMP 36.6; O2SAT 98
[2025-03-17 23:00] VITALS: RESP 16; O2SAT 98
[2025-03-18 03:00] VITALS: BP 130/82; PULSE 62; RESP 16; TEMP 36.7; O2SAT 97
[2025-03-18] MEDS: Piperacil/Tazobactam 3.375 GM in 0.9% Normal Saline (50mL MB+) 50 ML IV ×3 (05:02→21:17)
[2025-03-18] MEDS: 0.9% Normal Saline (1000mL) 1,000 ML 125 ML IV (05:11)
[2025-03-18 08:20] VITALS: BP 103/80; PULSE 70; RESP 16; TEMP 36.4; O2SAT 96
--- NOTE | 2025-03-18 09:04 | PN.SURG_ITS ---
Subjective Subjective Patient reports she is now passing flatus. She also felt hungry last night. She denies any nausea or vomiting this morning. Objective Data Objective Data Vital Signs: Vital Signs Temp Pulse Resp BP Pulse Ox O2 Del Method O2 Flow Rate 97.6 F L 70 16 103/80 96 Room Air 2 03/18/25 08:20 03/18/25 08:20 03/18/25 08:20 03/18/25 08:20 03/18/25 08:20 03/18/25 08:22 03/16/25 17:32 Oxygen Flow Rate (L/min) 2 Oxygen Delivery Method Room Air Weight: 259 lb 11.272 oz Body Mass Index (BMI) 41.9 Intake & Output: Intake and Output for Last 24 Hours 03/16/25 03/17/25 03/18/25 23:59 23:59 23:59 Intake Total 3600 / 3600 3325 / 3325 1433.33 / 1433.33 Output Total 185 / 185 120 / 120 20 / 20 Balance 3415 / 3415 3205 / 3205 1413.33 / 1413.33 Lab / Micro Data 03/17/25 06:22 03/17/25 06:22 Physical Exam Const oriented x3 and no apparent distress Resp normal respiratory effort GI soft to palpation Palpation: tender Assessment & Plan Assessment/Plan (1) Acute perforated appendicitis: PLAN: Her RICKEY is less purulent today. She is now passing flatus. I will start her on clear liquids and advance as tolerated. Decrease IV fluids. Continue antibiotics. Fantasma Teran MD Pager: [facility] [address] [place] [address], [address] [place] [address] Office:
[2025-03-18 14:24] VITALS: BP 115/67; PULSE 76; RESP 15; TEMP 36.6; O2SAT 100
[2025-03-18 21:22] VITALS: BP 131/74; PULSE 71; RESP 16; TEMP 36.8; O2SAT 97
[2025-03-19] MEDS: 0.9% Normal Saline (1000mL) 1,000 ML 30 ML IV (01:34)
[2025-03-19 03:11] VITALS: BP 133/81; PULSE 84; RESP 16; TEMP 36.8; O2SAT 95
[2025-03-19 04:57] LABS: Hematocrit 31.7 % (37-47); Hemoglobin 10.0 g/dL (12.0-15.0); Immature Granulocytes Count 0.130 X10^3/uL (0.0-0.0); Mean Corp Hgb Conc 31.5 g/dL (32-36); Mean Corpuscular Volume 97.2 fL (81-99); Mean Platelet Vol. 10.4 fl (6.2-12.0); NRBC Flagged by Analyzer 0 % (0-5); POSITIVE MORPHOLOGY YES; Platelet Count 242 K/mm3 (150-450); RBC Distribution Width CV 12.9 % (11.6-14.6); RBC Distribution Width SD 46.2 fl (35.1-43.9); Red Blood Count 3.26 M/mm3 (4.2-5.4); White Blood Count 10.2 K/mm3 (4.4-11.0)
[2025-03-19 05:04] LABS: Differential Indicated SCAN CRITERIA MET
[2025-03-19] MEDS: Piperacil/Tazobactam 3.375 GM in 0.9% Normal Saline (50mL MB+) 50 ML IV (05:13)
[2025-03-19 05:29] LABS: Anion Gap 10 (5-15); BUN 13 mg/dL (4-19); BUN/Creat Ratio 15.8 RATIO (10-20); Calcium,Total 8.3 mg/dL (7.6-11.0); Carbon Dioxide 20.6 mmol/L (21.0-32.0); Chloride 108 mmol/L (98-108); Estimated Creatinine Clearance 104.95 ml/min (50-250); Glucose 107 mg/dL (70-99); Potassium 3.0 mmol/L (3.3-5.1)
[2025-03-19 05:52] LABS: Reactive Lymphocyte RARE
--- NOTE | 2025-03-19 09:10 | PN.SURG_ITS ---
Subjective Subjective Patient is doing well and tolerating a diet. Pain is well-controlled on oxycodone. Objective Data Objective Data Vital Signs: Vital Signs Temp Pulse Resp BP Pulse Ox O2 Del Method O2 Flow Rate 98.2 F 84 16 133/81 H 95 Room Air 2 03/19/25 03:11 03/19/25 03:11 03/19/25 03:11 03/19/25 03:11 03/19/25 03:11 03/19/25 03:11 03/16/25 17:32 Oxygen Flow Rate (L/min) 2 Oxygen Delivery Method Room Air Weight: 259 lb 11.272 oz Body Mass Index (BMI) 41.9 Intake & Output: Intake and Output for Last 24 Hours 03/17/25 03/18/25 03/19/25 23:59 23:59 23:59 Intake Total 3325 / 3325 4033.33 / 4033.33 1569.5 / 1569.5 Output Total 120 / 120 60 / 60 10 / 10 Balance 3205 / 3205 3973.33 / 3973.33 1559.5 / 1559.5 Lab / Micro Data 03/19/25 04:39 03/19/25 04:39 Labs: Laboratory Results - last 24 hr 03/19/25 04:39: WBC 10.2, RBC 3.26 L, Hgb 10.0 L, Hct 31.7 L, MCV 97.2, MCH 30.7, MCHC 31.5 L D, RDW Std Deviation 46.2 H, RDW Coeff of Adria 12.9, Plt Count 242, MPV 10.4, Immature Gran % (Auto) 1.300 H, Neut % (Auto) 61.1, Lymph % (Auto) 25.2, [place] % (Auto) 10.6 H, Eos % (Auto) 1.2, Baso % (Auto) 0.6, Absolute Neuts (auto) 6.2, Absolute Lymphs (auto) 2.57, Nucleated RBC % 0, Reactive Lymphocytes RARE, Sodium 138, Potassium 3.0 L, Chloride 108, Carbon Dioxide 20.6 L, Anion Gap 10, BUN 13, Creatinine 0.80, Estim Creat Clear Calc 104.95, Est GFR (MDRD) Non-Af 88, BUN/Creatinine Ratio 15.8, Glucose 107 H, Calcium 8.3 Physical Exam Const oriented x3 and no apparent distress Resp normal respiratory effort GI soft to palpation and non-tender Assessment & Plan Assessment/Plan (1) Acute perforated appendicitis: PLAN: Patient is doing well after laparoscopic appendectomy. I removed her drain today. Will discharge her home on oral antibiotic. Fantasma Teran MD Pager: [facility] [address] [place] [address], [address] [place] [address] Office:
--- NOTE | 2025-03-19 09:11 | PCM.DC.SUM ---
Providers Date of Admission: 03/16/25 Primary Care Physician: PETE CarranzaC Reason For Visit: ACUTE PERFORATED APPENDICITIS, ABD PAIN Diagnosis Discharge Diagnosis (1) Acute perforated appendicitis: Status: Acute Code(s): K35.32 - Acute appendicitis with perforation, localized peritonitis, and gangrene, without abscess Plan: Patient is doing well after laparoscopic appendectomy. I removed her drain today. Will discharge her home on oral antibiotic. Fantasma Teran MD Pager: [facility] [address] [place] [address], [address] [place] [address] Office: Medications at Discharge Home Medications prednisone 20 mg tablet 20 mg PO DAILY #5 tabs 03/29/24 amoxicillin 500 mg-potassium clavulanate 125 mg tablet (Augmentin) 1 tab PO BID #14 tabs 03/19/25 docusate sodium 100 mg capsule 100 mg PO BID 4 days #8 caps 03/19/25 oxycodone 5 mg tablet 5 - 10 mg (1 - 2 x 5 mg) PO Q4H PRN PRN Pain Score 4-10 5 days #14 tabs 03/19/25 Hospital Course Operations appendectomy Procedures None Summary of Care Provided Hospital Course: Patient presenting with perforated appendicitis. She was taken for surgery and had a laparoscopic appendectomy. She was found to be perforated with stool in the abdomen. Drain was left in place. Postoperative day 3 the drain was removed and the patient will be discharged home on oral antibiotics Weight / BMI Weight Weight: 259 lb 11.272 oz Body Mass Index (BMI) 41.9 ABG / Lab / Microbiology Data 03/19/25 04:39 03/19/25 04:39 Laboratory: Laboratory Results - last 24 hr 03/19/25 04:39: WBC 10.2, RBC 3.26 L, Hgb 10.0 L, Hct 31.7 L, MCV 97.2, MCH 30.7, MCHC 31.5 L D, RDW Std Deviation 46.2 H, RDW Coeff of Adria 12.9, Plt Count 242, MPV 10.4, Immature Gran % (Auto) 1.300 H, Neut % (Auto) 61.1, Lymph % (Auto) 25.2, [place] % (Auto) 10.6 H, Eos % (Auto) 1.2, Baso % (Auto) 0.6, Absolute Neuts (auto) 6.2, Absolute Lymphs (auto) 2.57, Nucleated RBC % 0, Reactive Lymphocytes RARE, Sodium 138, Potassium 3.0 L, Chloride 108, Carbon Dioxide 20.6 L, Anion Gap 10, BUN 13, Creatinine 0.80, Estim Creat Clear Calc 104.95, Est GFR (MDRD) Non-Af 88, BUN/Creatinine Ratio 15.8, Glucose 107 H, Calcium 8.3 D/C Instructions Discharge Activity: May Drive (in 2 days and when off narcotics) and May Shower Lifting Restrictions: 15 lbs for 2 weeks, no work for 2 week Additional Activity Instructions: Alternate ibuprofen and Tylenol for pain control, oxycodone for breakthrough pain Call your doctor if your incision/area has: Continuous Slow Oozing, Sudden Increased Bleeding, Increased Pain/ Swelling, Increased Redness, Foul Smelling Discharge and Swelling at the incision site Call your doctor if you observe: Fever of 101 or Higher Remove Dressing in: 2 days (Remove clear bandages tomorrow. Remove Steri-Strips in 7 days.) Cleanse incision/area with: Soap & Water DC O2, CPAP, BIPAP Needs Home O2 Discharge instructions: No DC home with Oxygen: No Please Follow Up With: Fantasma Teran MD When: Please call to schedule 2 week follow up appointment. [phone] Meaningful Use Info Meaningful Use Meaningful Use Diagnoses (Choose all that apply): None applicable Discharge Plan Admission Admit Date/Time: 03/16/25 11:10 Attending Provider: Fantasma Teran Primary Care Provider: Amaris Louie Discharge Orders/Prescriptions Prescriptions: New docusate sodium 100 mg Capsule 100 mg PO BID 4 Days Qty: 8 0RF oxycodone 5 mg Tablet 5 - 10 mg PO Q4H PRN PRN (Reason: Pain Score 4-10) 5 Days Qty: 14 0RF amoxicillin-pot clavulanate [Augmentin] 500-125 mg tablet 1 tab PO BID Qty: 14 0RF Continued prednisone 20 mg tablet 20 mg PO DAILY Qty: 5 0RF Referrals / Follow Up: Amaris Louie NP-C [Primary Care Provider, Family Practice] Disposition Disposition (needs filled in before D/C Order can be placed): Home, Self Care
[2025-03-19 09:30] VITALS: BP 108/72; PULSE 78; RESP 16; TEMP 36.6; O2SAT 96
[2025-03-19] MEDS: Potassium Chloride Oral Tablet 20 MEQ 40 MEQ PO (10:06)
[2025-03-19 15:52] VITALS: BP 124/76; PULSE 72; RESP 18; TEMP 36.7; O2SAT 100
== END 2025-03-19 18:05 | disposition home or self-care (01) | DRG 399 ==
LOC: ED 10:40 → SDC 10:52 → ACINP 10:53 → MS3 16:48 → SDC 03-17 09:28 → MS3 03-17 09:28
PROVIDERS: Admitting Provider Surgery; Emergency Provider Emergency Medicine; PCP Nurse Practitioner Family; Visit Provider Surgery
PROC: 0DTJ4ZZ Resection of Appendix, Percutaneous Endoscopic Approach (ICD-10-PCS; CPT 44970; principal; 2025-03-16 14:45)
DX: K35.33 Acute appendicitis with perforation, localized peritonitis, and gangrene, with abscess (principal)
CPT/HCPCS: 36415; 74177; 80048; 80053; 83605; 83690; 85025; 88304; 97802; 99282; Q9967; A4216; J2405